=== PATIENT | female | born 1955 | race Caucasian/White ===

== ENCOUNTER → 2022-01-29 | Outpatient (CLI) | payer BC, MEDICARE ==
[~2022-01-29] MED LIST: ACHD5005 PO; BENZ200C25 PO; BUPR150T49 PO; CLIN-62; CYCL10TA9 PO; DILT240C87 PO; DOXY100C2 PO; HYDR-31; HYDR-34 PO; HYDR-3583 PO; HYDR-707 PO; PRX10T; PRX25T; SERT50TA2 PO; SLMFT1E
[2022-01-29 14:53] LABS: BILIRUBIN,URINE NEGATIVE (NEGATIVE); CLARITY,URINE CLEAR; COLOR,URINE YELLOW; GLUCOSE, URINE (UA) NEGATIVE (NEGATIVE); KETONES,URINE NEGATIVE (NEGATIVE); LEUKOCYTE ESTERASE ,URINE 1+ (NEGATIVE); NITRITE,URINE NEGATIVE (NEGATIVE); PROTEIN,URINE NEGATIVE (NEGATIVE)
[2022-01-29 15:08] LABS: BACTERIA,URINE FEW /HPF; RENAL EPITHELIAL CELLS,URINE 0-2 /HPF; SQUAMOUS EPITHELIAL CELL,UR 0-2 /HPF
== END ==
LOC: LAB 14:18
PROVIDERS: ATTEND Internal Medicine
DX: R35.0 Frequency of micturition (principal)
CPT/HCPCS: 81000; 87088

== ENCOUNTER → 2022-07-14 | Outpatient (CLI) | payer MEDICARE ==
[~2022-07-14] MED LIST changes: +CATHETER FLUSH 10 ML SYR IV PRN; +HOLD METFORMIN - RECEIVED CONTRAST 20 ML VIAL IV SCH; +IOHEXOL 350 MG/ML 100 ML (OMNIPAQUE 350) VIAL IV ONE; +NS 100 ML (IVPB) BAG IV ONE
--- NOTE | 2022-07-14 16:09 | Diagnostic Imaging Report ---
PROCEDURE: CT abdomen and pelvis with contrast. TECHNIQUE: Multiple contiguous axial images were obtained through the abdomen and pelvis after administration of intravenous contrast. Auto Exposure Controls were utilized during the CT exam to meet ALARA standards for radiation dose reduction. All CT scans use one or more of the following dose optimizing techniques: automated exposure control, MA and/or KvP adjustment based on patient size and exam type or iterative reconstruction. INDICATION: Right lower quadrant pain with fatigue. COMPARISON: This exam is correlated with overlapped structures included at CT thoracolumbar spine of 11/22/2021. FINDINGS: The lung bases are clear. There is a moderate retrocardiac hiatal hernia, mildly increased from the comparison. The air-containing appendix is well visualized and normal. There are a few noninflamed diverticula of the sigmoid colon. The gallbladder is surgically absent. The liver and bile ducts are nonacute. The adrenals are negative. There is no hydroureteronephrosis. No perinephric or periureteric edema or stranding. There is no bowel obstruction. There is no ascites, abscess, hematoma, or acute fluid collection. No pneumatosis. No free air. There is infrarenal atherosclerotic aortic ectasia unruptured measuring 2.3 cm near the takeoff of the MADELINE, previously 1.7 cm at that same level. The urinary bladder is unremarkable. No mesenteric or retroperitoneal adenopathy. No adnexal lesion. The uterus is absent. IMPRESSION: Normal appendix. Noninflamed diverticulosis. Unruptured atherosclerotic aortoiliac ectasia, mildly increased from the prior exam. Chronic retrocardiac hiatal hernia, mildly increased. No obstructive features, inflammatory processes, hemorrhage, or acute appearing abnormalities. Dictated by: Dictated on workstation # [id number]
== END ==
LOC: RAD 14:37
PROVIDERS: ATTEND Nurse Practitioner Family
DX: K57.30 Diverticulosis of large intestine without perforation or abscess without bleeding (principal); K44.9 Diaphragmatic hernia without obstruction or gangrene; I70.0 Atherosclerosis of aorta; I77.819 Aortic ectasia, unspecified site
CPT/HCPCS: 74177

== ENCOUNTER 2022-07-23 06:13 | Outpatient (CLI) | payer MEDICARE ==
[~2022-07-23] VITALS: Ht 165.1 cm; Wt 75.3 kg
[~2022-07-23 06:13] MED LIST changes: -CATHETER FLUSH 10 ML SYR IV PRN; -HOLD METFORMIN - RECEIVED CONTRAST 20 ML VIAL IV SCH; -IOHEXOL 350 MG/ML 100 ML (OMNIPAQUE 350) VIAL IV ONE; -NS 100 ML (IVPB) BAG IV ONE
[2022-07-23] MEDS ORDERED: FOLI1TAB33 PO (10:56)
[2022-07-23] MEDS ORDERED: METH2.5T PO (10:56)
== END 2022-07-23 11:02 ==
LOC: PREOP 06:13
PROVIDERS: ATTEND Internal Medicine
DX: Z01.818 Encounter for other preprocedural examination (principal); K22.70 Barrett's esophagus without dysplasia

== ENCOUNTER 2022-08-01 09:44 | Day surgery (SDC) | payer MEDICARE ==
--- NOTE | 2022-07-23 08:43 | HISTORY AND PHYSICAL ---
DATE OF SERVICE: COLONOSCOPY HISTORY AND PHYSICAL HISTORY OF PRESENT ILLNESS: The patient is a 67-year-old white female who noted the onset of right lower quadrant crampy abdominal pain last Thursday. She then had a loose stool this Thursday that had a small amount of bright red blood in it. She has felt fatigued, has not had any more severe cramping, but still has some mild right lower quadrant abdominal pain. She underwent CT scan that revealed diverticulosis without evidence for acute diverticulitis. No CT evidence for appendicitis was noted. She underwent rapid COVID testing in the office today that was negative. It had been 10 years since her last colonoscopy. She is not aware of any family history for colon cancer or polyps. PHYSICAL EXAMINATION: GENERAL: Revealed a white female. A little fatigued, but not in acute distress. VITAL SIGNS: Weight was down 4.6 pounds from five weeks ago at 165.8, blood pressure 130/72. CHEST: Clear. CARDIOVASCULAR: Reveals regular rate and rhythm without S3 or S4. ABDOMEN: Soft, supple with no evidence for mass or organomegaly. She had bilateral lower quadrant abdominal pain to palpation with some guarding on the right side, but no rebound tenderness. EXTREMITIES: Reveal no cyanosis, clubbing or edema. ASSESSMENT: For further investigation of predominant right and to a lesser extent left lower quadrant abdominal pain with rectal bleeding, the patient is being set up for diagnostic colonoscopy next Thursday08/01/2022. Prep instructions were given, and questions were answered. Job ID: [id number] DocumentID: [id number] Dictated Date: 07/21/2022 14:14:38 Safety And Health Manager Date: 07/21/2022 14:29:38 Dictated By: JAN LAURA MD
[~2022-08-01] VITALS: Ht 165 cm; Wt 75.3 kg
[~2022-08-01 09:44] MED LIST changes: +FOLI1TAB33 PO; +METH2.5T PO
[2022-08-01] MEDS ORDERED: LACTATED RINGERS 1,000 ML IV STA (09:48)
[2022-08-01 10:14] VITALS: BP 130/81
--- NOTE | 2022-08-01 10:25 | Pre-Op Note & Conscious Sedat ---
Pre-Operative Progress Note Date H&P Reviewed: Aug 01, 2022 Time H&P Reviewed: 10:24 History & Physical: H&P Reviewed, Patient Examed, No changes noted Pre-Op Diagnosis: rectal bleeding Conscious Sedation Pre-Proced ASA Score 2 For ASA 3 and 4: Consider anesthesia and medical clearance. Also, for patients with a history of failed moderate sedation consider anesthesia. Airway Lungs Heart ASA score ASA 1: a normal healthy patient ASA 2: a patient with a mild systemic disease (mid diabetes, controlled hypertension, obesity ASA 3: a patient with a severe systemic disease that limits activity (angina, COPD, prior Myocardial infarction) ASA 4: a patient with an incapacitating disease that is a constant threat to life (CHF, renal failure) ASA 5: a moribund patient not expected to survive 24 hrs. (ruptured aneurysm) ASA 6: a declared brain- patient whose organs are being harvested. For emergent operations, add the letter E after the classification Mallampati Classification Grade 2 Sedation Plan Analgesia, Amnesia, Plan communicated to team members, Discussed options with patient/fam, Discussed risks with patient/fam The patient is an appropriate candidate to undergo the planned procedure, sedation, and anesthesia. The patient immediately re-assessed prior to indication. JAN LAURA MD Aug 01, 2022 10:25
[2022-08-01] MEDS ORDERED: PROPOFOL INJECTION 50 ML IV ONE (11:04)
[2022-08-01 11:35] VITALS: BP 95/55
--- NOTE | 2022-08-01 11:37 | Progress Note-Post Operative ---
Post-Procedure Note Physician (s)/Hospitality Ambassador (s) Physician JAN LAURA MD Pre-Procedure Diagnosis Pre-Procedure Diagnosis: rectal bleeding Post-Procedure Diagnosis Post-operative diagnosis: mild sigmoid diverticular disease otherwise normal colon. JAN LAURA MD Aug 01, 2022 11:37
--- NOTE | 2022-08-01 11:38 | Anesthesia-General Post-Op ---
MAC Patient Condition Mental Status/LOC: Same as Preop Cardiovascular: Satisfactory Nausea/Vomiting: Absent Respiratory: Satisfactory Pain: Controlled Complications: Absent Post Op Complications Complications None Follow Up Care/Instructions Patient Instructions None needed. Anesthesiology Discharge Order Discharge Order Patient is doing well, no complaints, stable vital signs, no apparent adverse anesthesia problems. No complications reported per nursing. HENNY HENDRICKSON CRNA Aug 01, 2022 11:38
[2022-08-01 11:40] VITALS: BP 99/54
[2022-08-01 11:55] VITALS: BP 107/64
[2022-08-01 12:08] VITALS: BP 107/64
--- NOTE | 2022-08-01 19:02 | OPERATIVE REPORT ---
DATE OF SERVICE: COLONOSCOPY SUMMARY INDICATION FOR PROCEDURE: Right lower quadrant abdominal pain with bright red blood per rectum. DESCRIPTION OF PROCEDURE: The patient was placed in the left lateral decubitus position. Prior to undergoing colonoscopy, a digital evaluation was performed. Anal sphincter tone was normal and the perianal reflex was intact. No abnormalities were noted on digital inspection of the anal canal or distal rectal vault. The colonoscope was then inserted into the rectum and under direct visualization advanced to the cecum. The cecum was identified by identification of the ileocecal valve and cecal strap. Photographic documentation was obtained. Appendiceal orifice was well visualized. Quality of the prep was fair. Careful inspection was made as colonoscope was withdrawn. FINDINGS: There was no evidence for internal or external hemorrhoids and the rectum was unremarkable. Mild diverticular disease was noted in the sigmoid and descending colon without evidence for diverticulitis. No other abnormalities noted in these areas. The splenic flexure, transverse colon, hepatic flexure, ascending colon, and cecum were unremarkable. ASSESSMENT: Mild diverticular disease noted in the sigmoid colon and descending colon without evidence of diverticulitis was noted, but an otherwise normal colonoscopy to the cecum including appendiceal orifice. We will not likely be advising future screening colonoscopy considering age and lack of family history for colon cancer. Job ID: [id number] DocumentID: [id number] Dictated Date: 08/01/2022 11:36:32 Raise Driller Date: 08/01/2022 19:01:53 Dictated By: JAN LAURA MD
== END 2022-08-01 12:08 | disposition home or self-care (01) ==
LOC: ENDO 09:44
PROVIDERS: ATTEND Internal Medicine
DX: K57.31 Diverticulosis of large intestine without perforation or abscess with bleeding (principal); Z88.5 Allergy status to narcotic agent; Z88.1 Allergy status to other antibiotic agents

== ENCOUNTER → 2022-10-15 | Outpatient (CLI) | payer MEDICARE ==
--- NOTE | 2022-10-15 10:59 | Diagnostic Imaging Report ---
PROCEDURE: Pelvic comp/transvaginal sonogram. TECHNIQUE: Complete transabdominal and transvaginal pelvic ultrasound was performed. In addition, limited pelvic Doppler was performed. INDICATION: Pelvic pain and recurrent urinary tract infections. Patient has had prior hysterectomy and bilateral oophorectomy. FINDINGS: The uterus and ovaries are surgically absent. No pelvic mass or fluid collection is identified. IMPRESSION: Status post hysterectomy and oophorectomy. No abnormality is detected. Dictated by: Dictated on workstation # [id number]
== END ==
LOC: RAD 09:53
PROVIDERS: ATTEND Nurse Practitioner Family
DX: R10.2 Pelvic and perineal pain (principal); Z90.710 Acquired absence of both cervix and uterus; Z90.722 Acquired absence of ovaries, bilateral
CPT/HCPCS: 76830; 76856